=== PATIENT | male | born 1975 | race African-American/Black ===

== ENCOUNTER 2017-01-25 03:20 | Emergency (ER) | payer MEDICAID, OTHER ==
[~2017-01-25] VITALS: Ht 167.6 cm; Wt 106.0 kg
[~2017-01-25 03:20] MED LIST: ALBU17AE26 INH; AMLO10TA4 PO; MOTRIN PO
[2017-01-25] MEDS ORDERED: IBUPROFEN 600MG TABLET PO ONE (05:00)
[2017-01-25] MEDS ORDERED: VISCOUS LIDOCAINE 2% 15 ML UDC PO STA (05:00)
[2017-01-25] MEDS ORDERED: ONDANSETRON 4MG ODT PO ONE (05:15)
[2017-01-25 05:46] VITALS: BP 138/85
== END 2017-01-25 06:16 | disposition home or self-care (01) ==
LOC: ER 04:36
DX: J06.9 Acute upper respiratory infection, unspecified (principal); I10 Essential (primary) hypertension; J45.909 Unspecified asthma, uncomplicated; R53.1 Weakness
CPT/HCPCS: 87804; 99283

== ENCOUNTER 2021-10-30 06:43 | Emergency (ER) | payer MEDICAID, OTHER ==
[~2021-10-30] VITALS: Ht 167.6 cm; Wt 104.0 kg
[2021-10-30 07:12] VITALS: BP 138/86
[2021-10-30 08:33] LABS: CLARITY URINE CLEAR (CLEAR); COLOR URINE YELLOW (YELLOW); KETONES URINE NEGATIVE (NEGATIVE); LEUKOCYTE ESTERASE URINE NEGATIVE (NEGATIVE); NITRITE URINE NEGATIVE (NEGATIVE); OCCULT BLOOD URINE NEGATIVE (NEGATIVE); PROTEIN URINE NEGATIVE (NEGATIVE); SPECIFIC GRAVITY URINE 1.014 (1.005-1.030); UROBILINOGEN URINE 0.2 E.U./dL (0.2-1.0)
[2021-10-30] MEDS ORDERED: T3 PO (08:45)
== END 2021-10-30 09:26 | disposition home or self-care (01) ==
LOC: ER 06:43
DX: M51.36 Other intervertebral disc degeneration, lumbar region (principal); J45.909 Unspecified asthma, uncomplicated; I10 Essential (primary) hypertension
CPT/HCPCS: 72100; 81003; 99284

== ENCOUNTER 2024-04-03 09:13 | Emergency (ER) | payer MEDICAID ==
[~2024-04-03] VITALS: Ht 165.1 cm; Wt 99.8 kg
[~2024-04-03 09:13] MED LIST changes: +T3 PO
[2024-04-03 09:22] VITALS: O2SAT 98
[2024-04-03] MEDS ORDERED: AMOX-494 MT (11:31)
[2024-04-03] MEDS ORDERED: IBUP-2030 MT (11:31)
[2024-04-03 11:35] VITALS: BP 138/88; PULSE 68; RESP 17; TEMP 97.8
== END 2024-04-03 11:38 | disposition home or self-care (01) ==
LOC: ER 09:13
DX: J02.8 Acute pharyngitis due to other specified organisms (principal); J45.909 Unspecified asthma, uncomplicated; I10 Essential (primary) hypertension
CPT/HCPCS: 87070; 87430; 99283

== ENCOUNTER 2024-11-14 03:44 | Emergency (ER) | payer MEDICAID ==
[~2024-11-14] VITALS: Ht 167.6 cm; Wt 98.0 kg
[~2024-11-14 03:44] MED LIST changes: +AMOX-494 MT; +IBUP-2030 MT
[2024-11-14 03:51] VITALS: O2SAT 98
[2024-11-14 03:53] VITALS: BP 147/90; PULSE 91; RESP 16; TEMP 98.7; O2SAT 99
== END 2024-11-14 06:05 | disposition home or self-care (01) ==
LOC: ER 03:44
DX: B34.9 Viral infection, unspecified (principal); I10 Essential (primary) hypertension; J45.909 Unspecified asthma, uncomplicated; Z20.822 Contact with and (suspected) exposure to COVID-19; Z79.899 Other long term (current) drug therapy
CPT/HCPCS: 87426; 87804; 99283